=== PATIENT | male | born 1940 | race Caucasian/White ===

== ENCOUNTER 2016-09-10 06:11 | Day surgery (SDC) | payer MEDICARE ==
[~2016-09-10] VITALS: Ht 165.1 cm; Wt 89.1 kg
[~2016-09-10 06:11] MED LIST: CLAR10TA7 PO; CORE12.5 PO; ENAL2.5 PO; FEXO180T OR; FURO1TAB93 PO; GLYB1TAB50 PO; IMDU120T PO; JANU100T PO; MONT10TA2 PO; NORV5TAB PO; NOVO7030P2 SQ; PRIL20CA PO; SIMV20TA PO; TREN400T PO
[2016-09-10 06:52] VITALS: BP 149/65; PULSE 60; RESP 20; TEMP 97.8; O2SAT 92
[2016-09-10 07:43] LABS: AUTOMATED NEUTROPHIL # 3.5 TH/MM3 (1.8-7.7); BASOPHIL % 0.7 % (0.0-2.0); EOSINOPHIL # 0.3 TH/MM3 (0-0.4); EOSINOPHIL % 6.2 % (0.0-4.0); HEMATOCRIT 35.1 % (39.0-51.0); LYMPH % 15.9 % (9.0-44.0); LYMPHOCYTE # 0.9 TH/MM3 (1.0-4.8); MEAN CELL VOLUME 88.8 FL (80.0-100.0); MEAN CORPUSCULAR HEMOGLOBIN 29.2 PG (27.0-34.0); MEAN CORPUSCULAR HGB CONC 32.9 % (32.0-36.0); MONO % 13.2 % (0.0-8.0); PLATELET COUNT 88 TH/MM3 (150-450); RED BLOOD COUNT 3.96 MIL/MM3 (4.50-5.90); WHITE BLOOD COUNT 5.4 TH/MM3 (4.0-11.0)
[2016-09-10] MEDS ORDERED: INSULIN HUMAN REGULAR 1,000 UNITS/10 ML VIAL SQ PRN (07:45)
[2016-09-10] MEDS ORDERED: ceFAZolin 2 GM PREMIX 50 ML IV SCH (07:45)
[2016-09-10] MEDS ORDERED: SODIUM CHLORID 0.9% 500 ML IV SCH (07:45)
[2016-09-10] MEDS ORDERED: METOPROLOL TARTRATE 25 MG TAB PO PRN (07:45)
[2016-09-10] MEDS ORDERED: LACTATED RINGER'S 1000 ML IV SCH (07:45)
[2016-09-10] MEDS ORDERED: LEVOFLOXACIN 500 MG PREMIX INJ 100 ML IV SCH (07:45)
[2016-09-10] MEDS ORDERED: SODIUM CHLOR 0.9% 1000 ML INJ 1,000 ML IV SCH (07:45)
[2016-09-10 07:53] LABS: HEMO FLAGS AUTO DIFF
[2016-09-10 07:56] LABS: BICARBONATE 28.1 MEQ/L (21.0-32.0); POTASSIUM 4.4 MEQ/L (3.5-5.1)
[2016-09-10] MEDS ORDERED: LANTUS2P SQ (07:56)
[2016-09-10] MEDS ORDERED: CARV12.5 PO (07:56)
[2016-09-10] MEDS ORDERED: FURO1TAB60 PO (07:56)
[2016-09-10] MEDS ORDERED: SIMV40TA PO (07:56)
[2016-09-10] MEDS ORDERED: SEVEL800 PO (07:56)
[2016-09-10] MEDS ORDERED: N7030SS (07:56)
[2016-09-10] MEDS ORDERED: ENAL2.5T PO (07:56)
[2016-09-10] MEDS ORDERED: MONT10TA2 PO (07:56)
[2016-09-10] MEDS ORDERED: LORA-361 PO (07:56)
[2016-09-10] MEDS ORDERED: MULT1TAB84 PO (07:56)
[2016-09-10] MEDS ORDERED: ACTO15TA11 PO (07:56)
[2016-09-10] MEDS ORDERED: AMLO5TAB2 PO (07:56)
[2016-09-10] MEDS ORDERED: PENT400T19 PO (07:56)
[2016-09-10] MEDS ORDERED: PLAV75TA29 PO (07:56)
[2016-09-10] MEDS ORDERED: TAMS5CAP PO (07:56)
[2016-09-10] MEDS ORDERED: SODI650T PO (07:56)
[2016-09-10] MEDS ORDERED: ISOS120T PO (07:56)
[2016-09-10 09:35] LABS: PLATELET ESTIMATE SMEAR LOW (NORMAL); PLATELET MORPHOLOGY ENLARGED (NORMAL); SCAN/DIFF AUTO DIFF CONFIRMED
--- NOTE | 2016-09-10 13:13 | RADRPT ---
EXAM DATE/TIME: 09/10/2016 09:43 [facility] COMPARISON: No previous studies available for comparison. INDICATIONS : Evaluate right renal mass. ORAL CONTRAST: No oral contrast ingested. RADIATION DOSE: 14.94 CTDIvol (mGy) MEDICAL HISTORY : Cardiovascular disease. Diabetes, renal failure SURGICAL HISTORY : None. ENCOUNTER: Initial ACUITY: 1 day PAIN SCALE: 0/10 LOCATION: abdomen TECHNIQUE: Volumetric scanning of the abdomen was performed. Using automated exposure control and adjustment of the mA and/or kV according to patient size, radiation dose was kept as low as reasonably achievable to obtain optimal diagnostic quality images. FINDINGS: LOWER LUNGS: The visualized lower lungs are clear. LIVER: Scattered granulomatous calcifications present. No suspicious mass. No biliary ductal dilatation. The re is dependent density within the gallbladder consistent with small stones. SPLEEN: Scattered granulomatous calcifications. Normal size with no mass. PANCREAS: Within normal limits. KIDNEYS: 5.3 cm rounded mass in the lateral mid to lower pole cortex of the right kidney abutting the central renal sinus and extending all the way to the lateral cortex. Contralateral left kidney is benign and unremarkable. There is no evidence of kidney stone or hydronephrosis. ADRENAL GLANDS: Within normal limits. AORTA/RETROPERITONEAL: Dense atherosclerotic calcification in the aorta and branch vessels. No evidence of aneurysm. No evid ence of retroperitoneal adenopathy. BOWEL/MESENTERY: The stomach and visualized small and large bowel demonstrate no abnormality. MUSCULOSKELETAL: Within normal limits for patient age. CONCLUSION: 5.3 cm solid right renal mass appears amenable to biopsy. Percutaneous treatment would require obliteration of the majority of the kidney with high risk of cli nically significant injury to the collecting system and/or central renal vasculature. This would only be considered appropriate in the setting of absolute contraindications to open surgical intervention in the setting of a high-grade malignancy. Eren Multani MD on September 10, 2016 at 13:03 Board Certified Radiologist. This report was verified electronically.
--- NOTE | 2016-09-10 14:00 | EKG ---
Date Performed: 09/10/2016 Time Performed: 07:30:57 PTAGE: 75 years EKG: Sinus rhythm LEFT VENTRICULAR HYPERTROPHY AND ST-T CHANGE POSSIBLE SEPTAL MYOCARDIAL INFARCTION , OF INDETERMINAT E AGE Since previous tracing, no significant change noted ABNORMAL ECGPREVIOUS TRACING : 2002 10.38 DOCTOR: Dyllan Lakhani Interpretating Date/Time 09/10/2016 13:57:21
== END 2016-09-10 11:00 | disposition home or self-care (01) ==
LOC: HSDC 06:11 → HRIP 06:12 → HSDC 11:00
PROVIDERS: ATTEND Urology
DX: N28.89 Other specified disorders of kidney and ureter (principal); I25.10 Atherosclerotic heart disease of native coronary artery without angina pectoris; E11.9 Type 2 diabetes mellitus without complications; N19 Unspecified kidney failure
CPT/HCPCS: 74150; 80048; 85025; 85610; 85730; 93005

== ENCOUNTER 2016-09-12 07:08 | Day surgery (SDC) | payer MEDICARE ==
[2016-09-12] VITALS (8 sets, daily range): BP systolic 131–160; BP diastolic 52–68; PULSE 63–70; RESP 17–20; TEMP 97.1–98; O2SAT 95–99
[~2016-09-12] VITALS: Ht 167.6 cm; Wt 89.1 kg
[~2016-09-12 07:08] MED LIST changes: +ACTO15TA11 PO; +AMLO5TAB2 PO; +CARV12.5 PO; -CLAR10TA7 PO; -CORE12.5 PO; -ENAL2.5 PO; +ENAL2.5T PO; -FEXO180T OR; +FURO1TAB60 PO; -FURO1TAB93 PO; -GLYB1TAB50 PO; -IMDU120T PO; +ISOS120T PO; -JANU100T PO; +LANTUS2P SQ; +LORA-361 PO; +MULT1TAB84 PO; +N7030SS; -NORV5TAB PO; -NOVO7030P2 SQ; +PENT400T19 PO; +PLAV75TA29 PO; -PRIL20CA PO; +SEVEL800 PO; -SIMV20TA PO; +SIMV40TA PO; +SODI650T PO; +TAMS5CAP PO; -TREN400T PO
[2016-09-12] MEDS ORDERED: SODIUM CHLOR 0.9% 1000 ML IV SCH (07:30)
[2016-09-12] MEDS ORDERED: LIDOCAINE 1%/EPINEPHrine 1:100,000 SOLN 20 ML VIAL ONE (07:48)
[2016-09-12] MEDS ORDERED: SODIUM BICARBONATE 8.4% INJ 50 ML ONE (07:56)
[2016-09-12] MEDS ORDERED: fentaNYL CITRATE 250 MCG/5 ML AMP ONE (09:42)
[2016-09-12] MEDS ORDERED: MIDAZOLAM HCL 5 MG/5 ML VIAL ONE (09:42)
[2016-09-12] MEDS ORDERED: THROMBIN (TOPICAL) 5,000 UNIT VIAL ONE (09:43)
--- NOTE | 2016-09-12 10:12 | PD.RAD ---
Post CT Procedure Prog Note Pre Procedure Diagnosis: (1) Right renal mass Post Procedure Diagnosis: (1) Right renal mass Procedure Date: Sep 12, 2016 Supervising Radiologist: Eren Multani Proceduralist/Assist: Carlota Villagomez RT(R)(CT) Proceduralist/Assist: Francie Naik Anesthesia: Local, Conscious Sedation Plan of Activity Patient to Unit: ROPU Patient Condition: Good See PACS Report for procedural detail/treatment Biopsy Side: Right Biopsy Procedure: Kidney Specimen: Core Biopsy Additional Detail: 16 ga Eren Acevedo MD Sep 12, 2016 10:12
[2016-09-12] MEDS ORDERED: HYDROmorphone HCL 2 MG TAB PO PRN (10:15)
[2016-09-12 11:00] LABS: AUTOMATED NEUTROPHIL # 2.7 TH/MM3 (1.8-7.7); BASOPHIL % 0.7 % (0.0-2.0); EOSINOPHIL # 0.3 TH/MM3 (0-0.4); EOSINOPHIL % 7.8 % (0.0-4.0); HEMATOCRIT 32.4 % (39.0-51.0); LYMPHOCYTE # 0.8 TH/MM3 (1.0-4.8); MEAN CELL VOLUME 88.6 FL (80.0-100.0); MEAN CORPUSCULAR HEMOGLOBIN 29.1 PG (27.0-34.0); MEAN CORPUSCULAR HGB CONC 32.9 % (32.0-36.0); MONO % 11.1 % (0.0-8.0); NEUT % 62.4 % (16.0-70.0); PLATELET COUNT 82 TH/MM3 (150-450); RED BLOOD COUNT 3.65 MIL/MM3 (4.50-5.90); RED CELL DISTRIBUTION WIDTH 15.5 % (11.6-17.2); WHITE BLOOD COUNT 4.4 TH/MM3 (4.0-11.0)
[2016-09-12 11:03] LABS: HEMO FLAGS AUTO DIFF
[2016-09-12 11:39] LABS: PLATELET ESTIMATE SMEAR LOW (NORMAL)
[2016-09-12 11:40] LABS: PLATELET MORPHOLOGY ENLARGED (NORMAL); SCAN/DIFF AUTO DIFF CONFIRMED
[2016-09-12 12:21] LABS: AUTOMATED NEUTROPHIL # 3.4 TH/MM3 (1.8-7.7); BASOPHIL % 0.7 % (0.0-2.0); EOSINOPHIL # 0.4 TH/MM3 (0-0.4); EOSINOPHIL % 7.5 % (0.0-4.0); HEMATOCRIT 32.3 % (39.0-51.0); LYMPH % 19.3 % (9.0-44.0); LYMPHOCYTE # 1.1 TH/MM3 (1.0-4.8); MEAN CELL VOLUME 88.1 FL (80.0-100.0); MEAN CORPUSCULAR HEMOGLOBIN 29.4 PG (27.0-34.0); MEAN CORPUSCULAR HGB CONC 33.4 % (32.0-36.0); MONO % 11.5 % (0.0-8.0); PLATELET COUNT 82 TH/MM3 (150-450); RED BLOOD COUNT 3.67 MIL/MM3 (4.50-5.90); RED CELL DISTRIBUTION WIDTH 15.3 % (11.6-17.2); WHITE BLOOD COUNT 5.5 TH/MM3 (4.0-11.0)
[2016-09-12 12:28] LABS: HEMO FLAGS AUTO DIFF
[2016-09-12 13:06] LABS: OVALOCYTES 1+ (NORMAL); PLATELET ESTIMATE SMEAR LOW (NORMAL); PLATELET MORPHOLOGY NORMAL (NORMAL); SCAN/DIFF AUTO DIFF CONFIRMED
--- NOTE | 2016-09-12 13:25 | RADRPT ---
EXAM DATE/TIME: 09/12/2016 09:49 [facility] COMPARISON: No previous studies available for comparison. INDICATIONS : Right renal mass. SEDATION TIME: 30 minutes BIOPSY SITE: Right renal MEDICATION(S): 1.) 1.5 mg midazolam (Versed) IV 2.) 75 mcg fentanyl (Sublimaze) IV DEVICE(S): 1.) 16 gauge Temno core biopsy needle MEDICAL HISTORY : Diabetes mellitus type 2. Hypertension. Chronic kidney disease. SURGICAL HISTORY : CABG ENCOUNTER: Initial ACUITY: 1 day PAIN SCORE: 0/10 LOCATION: Right flank A total of one core specimen(s) were obtained and sent to the laboratory for pathologic evaluation. PROCEDURE: 1. CT guided renal biopsy. 2. Conscious sedation with continuous EKG and oximetry monitoring. 3. EKG and oximetry remained stable throughout the procedure. Prior to the procedure informed consent was obtained. Any appropriate prior imaging studies were rev iewed. The site was prepped in a sterile fashion. Full sterile technique was used, including cap, mask, cori rile gloves and gown and a large sterile sheet. Hand hygiene and 2% chlorhexidine and/or betadine/al cohol prep was utilized per protocol for cutaneous antisepsis. The skin and subcutaneous tissues wer e infiltrated with local anesthetic solution. With CT guidance the previously identified target was localized. Biopsy was performed using the presc ribed needle as above. Adequate hemostasis was obtained with compression at the puncture site. Follow-up CT scan reveals minimal perinephric hemorrhage. Patient was left on the scanner and rescann ed after 5 minutes is no significant increase in hematoma.. The patient tolerated the procedure well and there were no complications. The patient was returned to the Radiology Outpatient Unit in stable condition. CONCLUSION: Uncomplicated CT guided biopsy. Eren Multani MD on September 12, 2016 at 13:21 Board Certified Radiologist. This report was verified electronically.
== END 2016-09-12 15:57 | disposition home or self-care (01) ==
LOC: HROP 07:08 → HRIP 07:10 → HROP 15:57
PROVIDERS: ATTEND Urology
DX: C64.9 Malignant neoplasm of unspecified kidney, except renal pelvis (principal); N28.89 Other specified disorders of kidney and ureter; I12.9 Hypertensive chronic kidney disease with stage 1 through stage 4 chronic kidney disease, or unspecified chronic kidney disease; N18.9 Chronic kidney disease, unspecified; E11.9 Type 2 diabetes mellitus without complications; Z95.1 Presence of aortocoronary bypass graft
CPT/HCPCS: 50200; 77012; 85025; 88305; J2250; J3010; J7030